=== PATIENT | female | born 1955 | race Caucasian/White ===

== ENCOUNTER 2022-03-14 09:27 | Emergency (ER) | payer MEDICAID ==
[~2022-03-14] VITALS: Ht 154.9 cm; Wt 79.4 kg
--- NOTE | 2022-03-14 09:40 | NUR ---
BIB RA 860 FROM HOME, HEARING VOICES TELLING HER TO KILL HERSELF X 1 MONTH. PLACED ON BED, AAOX4, NOT HYPERVENTILATING, +SI, FEELS HER JAW DROPPING VERBALIZE.
--- NOTE | 2022-03-14 09:45 | NUR ---
AT BED SIDE
--- NOTE | 2022-03-14 09:50 | NUR ---
BILLET BED OPERATOR AT BED SIDE FOR BLOOD WORKS
[2022-03-14 10:08] LABS: BASOPHILS # (AUTO) 0.1 K/uL (0.0-0.2); BASOPHILS % (AUTO) 1.8 % (0.0-2.0); EOSINOPHILS % (AUTO) 1.9 % (0.0-6.0); HEMATOCRIT 37 % (33-45); HEMOGLOBIN 12.1 g/dL (11.5-14.8); LYMPHOCYTES # (AUTO) 1.4 K/uL (0.8-4.8); LYMPHOCYTES % (AUTO) 23.7 % (20.0-44.0); MEAN CORPUSCULAR HGB CONC 33 g/dl (31.0-36.0); MEAN CORPUSCULAR VOLUME 87 fL (82-100); MONOCYTES # (AUTO) 0.3 K/uL (0.1-1.30); NEUTROPHILS # (AUTO) 3.9 K/uL (1.8-8.9); NEUTROPHILS % (AUTO) 67.6 % (43.0-81.0); PLATELET COUNT (AUTO) 317 K/uL (150-450); WHITE BLOOD COUNT (AUTO) 5.8 K/uL (4.3-11.0)
[2022-03-14 10:11] LABS: BILIRUBIN,URINE NEGATIVE (NEGATIVE); COLOR,URINE YELLOW (YELLOW); LEUKOCYTE ESTERASE ,URINE LARGE (NEGATIVE); NITRITE, URINE NEGATIVE (NEGATIVE); PROTEIN,URINE NEGATIVE (NEGATIVE); UGLUCOSE NEGATIVE (NEGATIVE); UROBILINOGEN,URINE 0.2 EU/dL (0.2)
[2022-03-14 10:27] LABS: BACTERIA,URINE Many /HPF (None Seen)
[2022-03-14 10:42] LABS: CALCIUM, SERUM 9.5 mg/dL (8.5-10.1); CARBON DIOXIDE 24 mmol/L (21-32); CHLORIDE 106 mmol/L (98-107); CREATININE 0.9 mg/dL (0.6-1.3); GLUCOSE 109 mg/dL (74-106); POTASSIUM 3.8 mmol/L (3.5-5.1); SODIUM SERUM 139 mmol/L (136-145); UREA NITROGEN, BLOOD 8 mg/dL (7-18)
[2022-03-14 10:48] LABS: ALANINE AMINOTRANSFERASE 33 U/L (12-78); ALBUMIN 3.7 g/dL (3.4-5.0); ALCOHOL, BLOOD < 3 mg/dL (0-0); ALKALINE PHOSPHATASE 81 U/L (46-116); ASPARTATE AMINOTRANSFERASE 20 U/L (15-37); BILIRUBIN,DIRECT 0.1 mg/dL (0.0-0.2); BILIRUBIN,TOTAL 0.4 mg/dL (0.2-1.0); TOTAL PROTEIN, SERUM 7.3 g/dL (6.4-8.2)
[2022-03-14 10:52] LABS: ACETAMINOPHEN 0 ug/ml (10-30)
--- NOTE | 2022-03-14 11:00 | NUR ---
SS Note: Pt. Is a 66-year-old female who demonstrates adequate insight to the reason for hospitalization. Per pt., she presents to the ER for suicidal ideation. Pt. stated that she has been experiencing auditory hallucinations and suicidal ideation. Pe pt., the voices are telling her to kill herself. Pt. has attempted in the past by overdosing on pills. Pt. has not attempted to herself recently but has a plan of cutting herself. Pt. was oriented x3, alert, and cooperative. During interview, pt. was capable of following directions and appeared groomed. Pt.'s speech was at a normal rate and pt.'s mood was elevated. Pt. reported no hx of mental health, substance abuse, denies homicidal ideation. Pt. denies visual hallucinations, paranoia, or delusions. Pt. has never been diagnosed with schizophrenia or any psychiatric condition. SW explored pt.'s living situation. Per pt., she lives alone [[address] [facility]. [address] [place] [id number]]. Pt. stated that she never been to a [facility] and wants to go voluntary. Plan: Pt. wants voluntary psychiatric admission.
[2022-03-14] MEDS ORDERED: CEPH500T PO (11:04)
[2022-03-14] MEDS ORDERED: CEPHALEXIN MONOHYDRATE 500 MG CAPSULE PO ONE ×2 (11:30→11:40)
--- NOTE | 2022-03-14 11:47 | NUR ---
COVID TEST COLLECTED AND SENT
--- NOTE | 2022-03-14 14:16 | NUR ---
Faxed clinicals over to [facility] [fax: [phone]]. Awaiting to see if pt. meets criteria.
--- NOTE | 2022-03-14 14:39 | NUR ---
[facility] [phone]
--- NOTE | 2022-03-14 19:26 | NUR ---
PT ACCEPTED TO [facility] WILL BE INFORMED AFTER EXCHANGE OF REPORT THE NAME OF MD. PLEASE CALL [phone] FOR REPORT PER ART.
[2022-03-14 19:32] VITALS: BP 126/70
--- NOTE | 2022-03-14 21:18 | NUR ---
S/W JOSUE AT [facility] FOR REPORT
--- NOTE | 2022-03-14 21:22 | NUR ---
STEPHEN DAUGHTER [phone]
--- NOTE | 2022-03-14 21:37 | NUR ---
[facility] ETA [id number]
--- NOTE | 2022-03-15 00:45 | NUR ---
REPPORT GIVEN TO EMS AT BEDSIDE
== END 2022-03-15 00:45 ==
LOC: ER 09:30
DX: R45.851 Suicidal ideations (principal); F20.9 Schizophrenia, unspecified; R07.9 Chest pain, unspecified; Z20.822 Contact with and (suspected) exposure to COVID-19; N39.0 Urinary tract infection, site not specified; F19.10 Other psychoactive substance abuse, uncomplicated
CPT/HCPCS: 36415; 71045; 80048; 80076; 80143; 80307; 80320; 81001; 84484 ×2; 85025; 87086; 87426; 93005; 99285; C9803; G0480

== ENCOUNTER 2022-03-21 22:42 | Inpatient (IN) | payer MEDICAID ==
[~2022-03-21] VITALS: Ht 165.1 cm; Wt 84.8 kg
[~2022-03-21 22:42] MED LIST: CEPH500T PO
--- NOTE | 2022-03-22 01:15 | NUR ---
[id number] FROM HOME FOR FENTANYL USE "SLOWER TO RESPOND" PER PT FAMILY. PT A/OX2; TOLERATING R/A WELL WITH NO SOB. CONNECTED PT TO POX AND MONITOR.
--- NOTE | 2022-03-22 01:44 | NUR ---
TREASURY ANALYST AT PT'S BEDSIDE
[2022-03-22] MEDS ORDERED: ONDANSETRON HCL/PF 4 MG/2 ML VIAL ONE (01:50)
[2022-03-22] MEDS ORDERED: IV NS 0.9% 1,000 ML BAG IV ONE (02:00)
[2022-03-22] MEDS ORDERED: ONDANSETRON HCL/PF 4 MG/2 ML VIAL IVP ONE (02:00)
--- NOTE | 2022-03-22 02:34 | NUR ---
L HAND #22 G S/L; PATENT AND INTACT. BLOOD COLLECTED AND SENT TO LAB
--- NOTE | 2022-03-22 02:40 | NUR ---
POC BS 62; DR. MACDONALD AWARE. ORDERS TO GIVE PT FOOD AND JUICE. ORDERS CARRIED OUT. WILL REASSESS BS
--- NOTE | 2022-03-22 02:59 | NUR ---
URINE COLLECTED AND SENT TO LAB
--- NOTE | 2022-03-22 03:03 | NUR ---
PT TAKEN TO CT VIA SHASHA
--- NOTE | 2022-03-22 03:14 | NUR ---
Note savanna in EDM - 03/22/22 at 0315 by SALTY [id number] FROM HOME FOR FENTANYL USE "SLOWER TO RESPOND" PER PT FAMILY. PT A/OX2; TOLERATING R/A WELL WITH NO SOB. CONNECTED PT TO POX AND MONITOR.
--- NOTE | 2022-03-22 03:14 | NUR ---
PT RETURNED TO ER BED [address]
--- NOTE | 2022-03-22 03:18 | NUR ---
POC BS RECHECK 68; DR. MACDONALD DO AWARE. WILL ENCOURAGE PT TO EAT MORE FOOD AND WILL REASSESS. PT HARD STICK. NO BLOOD DRAW YET. DR. MACDONALD DO AWARE.
[2022-03-22 03:38] LABS: BILIRUBIN,URINE NEGATIVE (NEGATIVE); COLOR,URINE YELLOW (YELLOW); LEUKOCYTE ESTERASE ,URINE NEGATIVE (NEGATIVE); NITRITE, URINE NEGATIVE (NEGATIVE); PROTEIN,URINE 30 mg/dl (NEGATIVE); UGLUCOSE 100 MG/DL mg/dL (NEGATIVE); UROBILINOGEN,URINE 0.2 EU/dL (0.2)
[2022-03-22 03:40] LABS: BASOPHILS % (AUTO) 0.2 % (0.0-2.0); EOSINOPHILS % (AUTO) 0.1 % (0.0-6.0); HEMATOCRIT 47 % (33-45); HEMOGLOBIN 15.1 g/dL (11.5-14.8); LYMPHOCYTES # (AUTO) 0.6 K/uL (0.8-4.8); LYMPHOCYTES % (AUTO) 2.6 % (20.0-44.0); MEAN CORPUSCULAR HGB CONC 32 g/dl (31.0-36.0); MEAN CORPUSCULAR VOLUME 90 fL (82-100); MONOCYTES # (AUTO) 1.1 K/uL (0.1-1.30); NEUTROPHILS # (AUTO) 20.7 K/uL (1.8-8.9); NEUTROPHILS % (AUTO) 92.1 % (43.0-81.0); PLATELET COUNT (AUTO) 238 K/uL (150-450); RED BLOOD CELL COUNT(AUTO) 5.23 MIL/uL (4.0-5.2); WHITE BLOOD COUNT (AUTO) 22.4 K/uL (4.3-11.0)
[2022-03-22 03:50] LABS: CALCIUM, SERUM 8.5 mg/dL (8.5-10.1); CARBON DIOXIDE 24 mmol/L (21-32); CHLORIDE 96 mmol/L (98-107); CREATININE 3.2 mg/dL (0.6-1.3); GLUCOSE 121 mg/dL (74-106); POTASSIUM 5.4 mmol/L (3.5-5.1); SODIUM SERUM 136 mmol/L (136-145); UREA NITROGEN, BLOOD 26 mg/dL (7-18)
[2022-03-22 03:58] LABS: ALANINE AMINOTRANSFERASE 496 U/L (12-78); ALBUMIN 4.2 g/dL (3.4-5.0); ALCOHOL, BLOOD < 3 mg/dL (0-0); ALKALINE PHOSPHATASE 147 U/L (46-116); ASPARTATE AMINOTRANSFERASE 563 U/L (15-37); BILIRUBIN,DIRECT 0.2 mg/dL (0.0-0.2); BILIRUBIN,TOTAL 0.5 mg/dL (0.2-1.0); TOTAL PROTEIN, SERUM 8.1 g/dL (6.4-8.2)
[2022-03-22 04:00] LABS: ACETAMINOPHEN 0 ug/ml (10-30)
--- NOTE | 2022-03-22 04:01 | NUR ---
NICKEL PLATER AT PT'S BEDSIDE
--- NOTE | 2022-03-22 04:17 | NUR ---
COVID ANTIGEN SWAB COLLECTED AND SENT TO LAB
--- NOTE | 2022-03-22 04:34 | NUR ---
TROPONIN 9.76; REPORTED TO DR. TORRES STACY AWARE Addendum: 03/22/22 at 0454 by SALTY TROPONIN [phone]; REPORTED TO DR. TORRES STACY AWARE
[2022-03-22] MEDS ORDERED: ENOXAPARIN SODIUM 80 MG/0.8 ML DISP.SYRIN SQ ONE ×2 (04:36→05:00)
--- NOTE | 2022-03-22 05:18 | NUR ---
[facility]
--- NOTE | 2022-03-22 06:25 | NUR ---
CHRONIC DISEASE EPIDEMIOLOGIST AT PT'S BEDSIDE
[2022-03-22 06:53] LABS: BACTERIA,URINE None seen /HPF (None Seen); SQUAMOUS EPITHELIAL CELL,UR None Seen /HPF (None Seen); WBC,URINE NONE SEEN /HPF (0-3)
[2022-03-22] MEDS: IV D5/ 0.9% NACL 1,000 ML IV PRN ×2 (06:56→09:14)
--- NOTE | 2022-03-22 07:08 | NUR ---
ROOM 120- 1
--- NOTE | 2022-03-22 07:12 | NUR ---
PER LAB, LACTIC ACID 4.5
[2022-03-22] MEDS ORDERED: ARIP10TA54 PO (07:51)
[2022-03-22] MEDS ORDERED: ESCI10TA PO (07:51)
--- NOTE | 2022-03-22 07:57 | NUR ---
REPORT GIVEN TO JUAN OCHOA FOR IBRAHIMA
--- NOTE | 2022-03-22 08:15 | NUR ---
TRANSFERRED TO BED IN STABLE CONDITION
--- NOTE | 2022-03-22 08:30 | NUR ---
RN NOTE RECEIVED PATIENT FROM ER DEPT VIA SHASHA, REPORT TAKEN FROM VIRA OCHOA. PATIENT ABLE TO AMBULATE TO BED WITH ASSIST. PATIENT IS AWAKE, ALERT/ORIENTED X 2-3, ABLE TO MAKE NEEDS KNOWN. ON O2 2LPM VIA NC, TOLERATING WELL WITH SATURATION OF 99%. BREATHING EVEN AND UNLABORED. NO SOB NOTED AT THE TIME. IV ACCESS NOTED ON LEFT HAND #22 G, PATENT AND INTACT, FLUSHED WELL. PLS REFER TO FLOWSHEET FOR SKIN ASSESSMENT. VITAL SIGNS: BP-145/89, HR-74, RR-18, TEMP-97.5. ALL SAFETY MEASURES IN PLACE. HOB ELEVATED, BED LOCKED AND IN LOWEST POSITION WITH SIDE RAILS UP X2, CALL LIGHT WITHIN REACH OF PATIENT. ALL NEEDS ANTICIPATED.
--- NOTE | 2022-03-22 09:25 | NUR ---
RN NOTE SPOKE TO HARJIT FROM PHARMACY. PER HARJIT OK TO RUN D5NS WITH ZOSYN AND ALSO VANCOMYCIN. WILL ADMINISTER MEDS SCHEDULED.
[2022-03-22] MEDS: PIPERACILLIN /TAZOBACTAM 2.25 G in IV D5W 50 ML IV SCH ×2 (09:27→16:29)
[2022-03-22] MEDS: VANCOMYCIN 1 GM in IV D5W 250 ML IV SCH (10:33)
[2022-03-22 12:00] VITALS: BP 123/66
[2022-03-22] MEDS ORDERED: PIPERACILLIN /TAZOBACTAM 3.375 G in IV D5W 50 ML IV SCH (12:00)
[2022-03-22 16:00] VITALS: BP 112/54
--- NOTE | 2022-03-22 18:47 | NUR ---
RN CLOSING NOTE NO SIGNIFICANT CHANGES FOR PATIENT THROUGHOUT SHIFT. PATIENT IS IN BED AWAKE, ALERT/ORIENTED X 2-3, ABLE TO MAKE NEEDS KNOWN. ON O2 2LPM VIA NC, TOLERATING WELL. BREATHING EVEN AND UNLABORED. NO SOB NOTED AT THE TIME. IV ACCESS NOTED ON LEFT HAND #22 G, PATENT AND INTACT, INFUSING D5NS AT 125 ML/HR, TOLERATING WELL. NO SIGNS OF INFILTRATION ON SITE. ALL DUE MEDS GIVEN ORDERED. KEPT PATIENT CLEAN DRY AND COMFORTABLE. ALL NEEDS ANTICIPATED. ALL SAFETY MEASURES IN PLACE. HOB ELEVATED, BED LOCKED AND IN LOWEST POSITION WITH SIDE RAILS UP X2, CALL LIGHT WITHIN REACH OF PATIENT. WILL ENDORSE TO ONCOMING NURSE FOR CONTINUITY OF CARE.
--- NOTE | 2022-03-22 19:00 | NUR ---
RN NOTE RECEIVED PATIENT IN BED, AO X 4, IN NO ACUTE DISTRESS AT THIS TIME. breathing unlabored, SATURATION AT 96% ON 2L VIA NC, SR ON THE MONITOR, HR IS 70. NOTED IV SITE AT L HAND 22G, PATENT AND FLUSHING WELL, NO S/S OF INFECTION OR INFILTRATION WITH D5 NS INFUSING AT 125 ML/HR. PATIENT IS AMBULATORY WITH ASSISTANCE. SAFETY MEASURES IMPLEMENTED. PATIENT BED ALARM IS ON. HEAD OF BED ELEVATED. BED IS LOCKED, IN LOWEST POSITION AND SIDE RAILS UP. CALL LIGHT WITHIN REACH OF THE PATIENT. WILL CONTINUE TO MONITOR AND REASSESS FOR ANY CHANGES.
[2022-03-22 20:00] VITALS: BP 111/58
[2022-03-22] MEDS ORDERED: CALCIUM CARBONATE 500 MG TAB.CHEW PO PRN (21:30)
[2022-03-23] MEDS: PIPERACILLIN /TAZOBACTAM 2.25 G in IV D5W 50 ML IV SCH ×3 (00:42→17:36)
[2022-03-23] MEDS: IV D5/ 0.9% NACL 1,000 ML IV PRN ×2 (00:43→19:04)
[2022-03-23 01:00] VITALS: BP 111/54
[2022-03-23 04:00] VITALS: BP 122/56
--- NOTE | 2022-03-23 07:05 | NUR ---
RN NOTE NOTED IV LINE AT L HAND 22G INFILTRATED, WITH IV SITE SWOLLEN. ATTEMPTED TO FLUSH AND ASPIRATE BUT NOTED NO BLOOD RETURN. SENIOR MATERIALS ANALYST ALSO UNABLE TO DRAW BLOOD AFTER SEVERAL ATTEMPTS. TRIED REINSERTING IV LINE BUT STILL UNABLE TO, AM SHIFT SPORTING GOODS SALES ASSOCIATE SOON MADE AWARE, SHE ACKNOWLEDGED AND STATED SHE WILL REFER PT FOR MIDLINE INSERTION.
--- NOTE | 2022-03-23 07:10 | NUR ---
RN OPENING NOTES: RECEIVED PATIENT IN BED, AO X 4, IN NO ACUTE DISTRESS AT THIS TIME. breathing unlabored, SATURATION AT 96% ON 2L VIA NC, SR ON THE MONITOR, HR IS 70. NO IV SITE AT THIS TIME PER NIGHT RN IV BECAME INFILTRATED AND UNABLE TO INSERT NEW LINE, AWAITING FOR MIDLINE INSERTION. PATIENT IS AMBULATORY WITH ASSISTANCE. SAFETY MEASURES IMPLEMENTED. PATIENT BED ALARM IS ON. HEAD OF BED ELEVATED. BED IS LOCKED, IN LOWEST POSITION AND SIDE RAILS UP. CALL LIGHT WITHIN REACH OF THE PATIENT. WILL CONTINUE TO MONITOR AND REASSESS FOR ANY CHANGES.
--- NOTE | 2022-03-23 07:31 | NUR ---
WOUND CARE CONSULT: PT PRESENTS WITH LEFT HEEL DISCOLORED AREA WHICH IS PAINFUL AND LONG TOENAILS. DR THAPA TO BE CALLED THIS AM FOR DPM CONSULT REQUEST. PT IS AMBULATORY AND CONTINENT. MD IN AGREEMENT WITH PLAN OF CARE.
[2022-03-23 08:00] VITALS: BP 122/55
[2022-03-23] MEDS ORDERED: ASPIRIN 81 MG TAB.CHEW PO SCH (09:00)
[2022-03-23] MEDS: ARIPIPRAZOLE 5 MG TABLET PO SCH (09:07)
[2022-03-23] MEDS: ESCITALOPRAM OXALATE (10 MG) 10 MG TABLET PO SCH (09:08)
[2022-03-23] MEDS: ENOXAPARIN SODIUM 30 MG/0.3 ML DISP.SYRIN SQ SCH (09:09)
--- NOTE | 2022-03-23 09:59 | NUR ---
RN NOTES: IV ZOSYN NOT GIVEN, TRIED TO INSERT A NEW LINE UNABLE TO INSERT NEW ONE, AWAITING FOR MIDLINE INSERTION, CHARGE NURSE AWARE
[2022-03-23 12:00] VITALS: BP 125/68
[2022-03-23 16:00] VITALS: BP 132/64
[2022-03-23 16:14] LABS: BASOPHILS % (AUTO) 0.1 % (0.0-2.0); EOSINOPHILS % (AUTO) 0.2 % (0.0-6.0); HEMATOCRIT 37 % (33-45); HEMOGLOBIN 11.9 g/dL (11.5-14.8); LYMPHOCYTES # (AUTO) 1.8 K/uL (0.8-4.8); LYMPHOCYTES % (AUTO) 14.8 % (20.0-44.0); MEAN CORPUSCULAR HGB CONC 33 g/dl (31.0-36.0); MEAN CORPUSCULAR VOLUME 88 fL (82-100); MONOCYTES # (AUTO) 0.6 K/uL (0.1-1.30); NEUTROPHILS # (AUTO) 9.8 K/uL (1.8-8.9); NEUTROPHILS % (AUTO) 79.9 % (43.0-81.0); PLATELET COUNT (AUTO) 175 K/uL (150-450); RED BLOOD CELL COUNT(AUTO) 4.18 MIL/uL (4.0-5.2); WHITE BLOOD COUNT (AUTO) 12.3 K/uL (4.3-11.0)
[2022-03-23 17:05] LABS: ALBUMIN 2.7 g/dL (3.4-5.0); BILIRUBIN,DIRECT 0.1 mg/dL (0.0-0.2); BILIRUBIN,TOTAL 0.3 mg/dL (0.2-1.0); CALCIUM, SERUM 8.3 mg/dL (8.5-10.1); CREATININE 1.6 mg/dL (0.6-1.3); MAGNESIUM 2.4 mg/dL (1.8-2.4); PHOSPHORUS 2.7 mg/dL (2.5-4.9); POTASSIUM 3.9 mmol/L (3.5-5.1)
[2022-03-23 17:54] LABS: THYROID STIMULATING HORMONE 1.658 uIU/mL (0.358-3.74)
--- NOTE | 2022-03-23 19:26 | NUR ---
RN CLOSING NOTES: NO SIGNIFICANT CHANGES FOR PATIENT THROUGHOUT SHIFT. PATIENT IS IN BED AWAKE, ALERT/ORIENTED X 3-4, ABLE TO MAKE NEEDS KNOWN. ON ROOM AIR. BREATHING EVEN AND UNLABORED. NO SOB NOTED AT THE TIME.RIGHT UPPER ARM MIDLINE GAUGE 18, PATENT AND INTACT, INFUSING D5NS AT 125 ML/HR, TOLERATING WELL. NO SIGNS OF INFILTRATION ON SITE. ALL DUE MEDS GIVEN ORDERED. KEPT PATIENT CLEAN DRY AND COMFORTABLE. ALL NEEDS ANTICIPATED. ALL SAFETY MEASURES IN PLACE. HOB ELEVATED, BED LOCKED AND IN LOWEST POSITION WITH SIDE RAILS UP X2, CALL LIGHT WITHIN REACH OF PATIENT. WILL ENDORSE TO ONCOMING NURSE FOR CONTINUITY OF CARE.
--- NOTE | 2022-03-23 19:34 | NUR ---
RN OPENING NOTE PATIENT IN BED, AWAKE. A/O X 4 AT THIS TIME. PATIENT IS ABLE TO MAKE NEEDS KNOWN. PATIENT DOES NOT REPORT ANY DISCOMFORT OR PAIN. BREATHING EVEN AND UNLABORED, NOT IN ANY APPARENT DISTRESS. PATIENT IS ON TELE MONITORING 78 BPM SR. PATIENT HAS A ARTURO MIDLINE PATENT AND INTACT WITH D5NS AT 125 ML/HR. SAFETY MEASURES IN PLACE: BED LOCKED AND IN LOWEST POSITION, CALL LIGHT WITHIN REACH, SIDE RAILS UP. WILL MONITOR PATIENT CLOSELY.
[2022-03-23 20:00] VITALS: BP 125/62
[2022-03-24] VITALS: BP 112/76
[2022-03-24] MEDS: PIPERACILLIN /TAZOBACTAM 2.25 G in IV D5W 50 ML IV SCH ×3 (01:00→16:26)
[2022-03-24 04:00] VITALS: BP 108/70
[2022-03-24] MEDS: IV D5/ 0.9% NACL 1,000 ML IV PRN (06:12)
--- NOTE | 2022-03-24 07:17 | NUR ---
RN CLOSING NOTE PATIENT IN BED, AWAKE. A/O X 4 AT THIS TIME. PATIENT IS ABLE TO MAKE NEEDS KNOWN. PATIENT DOES NOT REPORT ANY DISCOMFORT OR PAIN. NO N/V DURING THE SHIFT. BREATHING EVEN AND UNLABORED, NOT IN ANY APPARENT DISTRESS, ON RA. PATIENT IS ON TELE MONITORING 72 BPM SR. PATIENT HAS A ARTURO MIDLINE PATENT AND INTACT WITH D5NS AT 125 ML/HR. SAFETY MEASURES IN PLACE: BED LOCKED AND IN LOWEST POSITION, CALL LIGHT WITHIN REACH, SIDE RAILS UP. ALL NEEDS MET AND ATTENDED. ALL ORDERS CARRIED OUT. WILL ENDORSE TO DAY SHIFT NURSE FOR IBRAHIMA.
--- NOTE | 2022-03-24 07:33 | NUR ---
COAL MINER OPENING NOTE RECEIVED PATIENT IN BED, AWAKE. A/O X 4 AT THIS TIME. PATIENT IS ABLE TO MAKE NEEDS KNOWN.NO PAIN NO DISCOMFORT NOTED. BREATHING EVEN AND UNLABORED, NOT IN ANY APPARENT DISTRESS. PATIENT IS ON TELE MONITORING SR. PATIENT HAS A ARTURO MIDLINE PATENT AND INTACT WITH D5NS AT 125 ML/HR. SAFETY MEASURES IN PLACE: BED LOCKED AND IN LOWEST POSITION, CALL LIGHT AND TABLE WITHIN REACH, SIDE RAILS UP. WILL CONTINUE TO MONITOR PATIENT .
[2022-03-24 07:34] LABS: BASOPHILS % (AUTO) 0.1 % (0.0-2.0); EOSINOPHILS % (AUTO) 0.5 % (0.0-6.0); HEMATOCRIT 34 % (33-45); HEMOGLOBIN 11.2 g/dL (11.5-14.8); LYMPHOCYTES % (AUTO) 19.7 % (20.0-44.0); MEAN CORPUSCULAR HGB CONC 33 g/dl (31.0-36.0); MEAN CORPUSCULAR VOLUME 88 fL (82-100); MONOCYTES # (AUTO) 0.6 K/uL (0.1-1.30); MONOCYTES % (AUTO) 5.7 % (2.0-12.0); NEUTROPHILS # (AUTO) 7.6 K/uL (1.8-8.9); PLATELET COUNT (AUTO) 165 K/uL (150-450); RED BLOOD CELL COUNT(AUTO) 3.83 MIL/uL (4.0-5.2); WHITE BLOOD COUNT (AUTO) 10.3 K/uL (4.3-11.0)
[2022-03-24 08:00] VITALS: BP 152/60
[2022-03-24 08:16] LABS: CALCIUM, SERUM 8.3 mg/dL (8.5-10.1); CREATININE 1.5 mg/dL (0.6-1.3); MAGNESIUM 2.3 mg/dL (1.8-2.4); POTASSIUM 3.4 mmol/L (3.5-5.1)
[2022-03-24] MEDS ORDERED: K PHOS NEUTRAL 250 MG TABLET PO ONE (09:00)
[2022-03-24] MEDS: ARIPIPRAZOLE 5 MG TABLET PO SCH (09:12)
[2022-03-24] MEDS: ESCITALOPRAM OXALATE (10 MG) 10 MG TABLET PO SCH (09:12)
[2022-03-24] MEDS: ASPIRIN 81 MG TAB.CHEW PO SCH (09:12)
[2022-03-24] MEDS: ENOXAPARIN SODIUM 30 MG/0.3 ML DISP.SYRIN SQ SCH (09:13)
[2022-03-24] MEDS: VANCOMYCIN 1 GM in IV D5W 250 ML IV SCH (10:19)
[2022-03-24] MEDS ORDERED: POTASSIUM CHLORIDE 20 MEQ TAB.PRT.SR PO SCH (11:00)
[2022-03-24 12:00] VITALS: BP 140/65
[2022-03-24] MEDS: VITAMINS A AND D 56.7 GM TUBE TP SCH (13:18)
[2022-03-24 16:00] VITALS: BP 145/71
--- NOTE | 2022-03-24 18:50 | NUR ---
COMPUTER NETWORKING INSTRUCTOR ADJUNCT CLOSING NOTE PATIENT IN BED, AWAKE. A/O X 4 . PATIENT IS ABLE TO MAKE NEEDS KNOWN.NO PAIN NO DISCOMFORT NOTED. BREATHING EVEN AND UNLABORED, NOT IN ANY APPARENT DISTRESS. PATIENT IS ON TELE MONITORING SR 69. PATIENT HAS A ARTURO MIDLINE PATENT AND INTACT WITH D5NS AT 125 ML/HR. ALL DUE MEDS GIVEN ORDERED.SAFETY MEASURES IN PLACE: BED LOCKED AND IN LOWEST POSITION, CALL LIGHT AND TABLE WITHIN REACH, SIDE RAILS UP. WILL ENDORSE FOR IBRAHIMA.
[2022-03-24 20:00] VITALS: BP 135/65
[2022-03-25] VITALS: BP 130/71
[2022-03-25] MEDS: PIPERACILLIN /TAZOBACTAM 2.25 G in IV D5W 50 ML IV SCH ×3 (00:59→16:49)
[2022-03-25] MEDS: IV D5/ 0.9% NACL 1,000 ML IV PRN (01:03)
[2022-03-25 04:00] VITALS: BP 132/81
[2022-03-25 07:03] LABS: CALCIUM, SERUM 8.1 mg/dL (8.5-10.1); CREATININE 1.2 mg/dL (0.6-1.3); MAGNESIUM 2.1 mg/dL (1.8-2.4); PHOSPHORUS 2.5 mg/dL (2.5-4.9); POTASSIUM 3.3 mmol/L (3.5-5.1)
[2022-03-25 07:11] LABS: BASOPHILS % (AUTO) 0.4 % (0.0-2.0); HEMATOCRIT 33 % (33-45); HEMOGLOBIN 10.7 g/dL (11.5-14.8); LYMPHOCYTES # (AUTO) 2.1 K/uL (0.8-4.8); LYMPHOCYTES % (AUTO) 26.4 % (20.0-44.0); MEAN CORPUSCULAR HGB CONC 33 g/dl (31.0-36.0); MEAN CORPUSCULAR VOLUME 88 fL (82-100); MONOCYTES # (AUTO) 0.6 K/uL (0.1-1.30); MONOCYTES % (AUTO) 7.4 % (2.0-12.0); NEUTROPHILS % (AUTO) 63.8 % (43.0-81.0); PLATELET COUNT (AUTO) 179 K/uL (150-450); RED BLOOD CELL COUNT(AUTO) 3.71 MIL/uL (4.0-5.2); WHITE BLOOD COUNT (AUTO) 7.8 K/uL (4.3-11.0)
--- NOTE | 2022-03-25 07:51 | NUR ---
RN OPENING NOTE PATIENT RECEIVED IN BED, AO X 4. ABLE TO RESPONDS ALL STIMULI. IN NO ACUTE DISTRESS NOTED. RESPIRATORY EVEN AND UNLABORED ON ROOM AIR. SKIN IS WARM TO TOUCH, KEEP CLEAN/DRY. KEPT ELEVATED HOB FOR ENSURE AIRWAY AND ASPIRATION PRECAUTION, ALSO LOWEST POSITION OF THE BED, S/R UP X 3, BED ALARM IS ON AT ALL THE TIMES. ALL SAFETY PRECAUTION APPLIED. CALL LIGHT WITHIN REACH, WILL CONTINUE TO MONITOR.
[2022-03-25 08:00] VITALS: BP 149/88
[2022-03-25] MEDS: ESCITALOPRAM OXALATE (10 MG) 10 MG TABLET PO SCH (08:09)
[2022-03-25] MEDS: VITAMINS A AND D 56.7 GM TUBE TP SCH (08:09)
[2022-03-25] MEDS: ARIPIPRAZOLE 5 MG TABLET PO SCH (08:09)
[2022-03-25] MEDS: ASPIRIN 81 MG TAB.CHEW PO SCH (08:10)
[2022-03-25] MEDS: ENOXAPARIN SODIUM 30 MG/0.3 ML DISP.SYRIN SQ SCH (08:15)
[2022-03-25] MEDS ORDERED: POTASSIUM CHLORIDE 20 MEQ TAB.PRT.SR PO ONE (09:00)
[2022-03-25] MEDS ORDERED: HEPARIN SODIUM, PORCINE 5000 UNITS/1 ML VIAL ONE ×2 (09:49→22:22)
[2022-03-25] MEDS: VANCOMYCIN 1 GM in IV D5W 250 ML IV SCH (10:14)
[2022-03-25 12:00] VITALS: BP 127/70
[2022-03-25 16:00] VITALS: BP 150/77
--- NOTE | 2022-03-25 18:56 | NUR ---
RN CLOSING NOTE PATIENT IN BED, IN NO ACUTE DISTRESS OBSERVED. SKIN IS WARM TO TOUCH KEEP CLEAN/DRY. RESPIRATORY EVEN AND UNLABORED ON ROOM AIR. NO ADVERSE REACTION OBSERVED FROM ABX. PATIENT SIGNED CONSENT FOR CTA SCHEDULED TOMORROW. KEPT ELEVATED HOB FOR ENSURE AIRWAY AND ASPIRATION PRECAUTION, AND LOWEST POSITION OF THE BED FOR SAFETY. CALL LIGHT WITHIN REACH, WILL ENDORSE TO MIXING MACHINE OPERATOR.
[2022-03-25 20:00] VITALS: BP 160/65
--- NOTE | 2022-03-25 20:58 | NUR ---
IMFORMED YUNIOR LANDERS UNDERWEAR TRIMMER THAT PATIENT HR NOTED IN LOW 40S EVEN 40 TA THIS TIME, THAT SBP IS 169, AND PATIENT WILL HAVE CTA CORONARY IN AM, ALSO THAT PATIENT TROPONIN IN ADMISSION AND THE LAST 03/23 ARE HIGH VALUES SENT TO HER, ALSO REPORTED THAT WHEN ASSESS PATIENT SHE C/O UNDER BREAST/SUBSTERNAL PAIN, PER HER TO SEND STRIPS TO SEND IT TO HAND GLUER AND SLICER, STRIPS SENT AWAITING FOR CALL BACK.
--- NOTE | 2022-03-25 21:10 | NUR ---
RECEIVED A CALL FROM YUNIOR AND SHE STATED SHE WILL PUT ORDERS FOR EKG, NITRO SL, NITRO PATCH AND MORPHINE, AND THAT WE WELL START THE PATIENT IN HEPARIN DRIP, AWAITING FOR ORDERS.
--- NOTE | 2022-03-25 21:11 | NUR ---
RECEIVED AN ORDER FROM YUNIOR PER HER DR SANCHEZ WANT US TO GIVE HEPARIN 5000U IV BOLUS, ORDER NOTED AND CARRIED OUT.
[2022-03-25] MEDS: NITROGLYCERIN 0.4 MG/TAB BOTTLE SL PRN ×3 (21:16→21:28)
--- NOTE | 2022-03-25 21:16 | NUR ---
PATIENT C/O SUBSTERNAL PAIN 06/20, SHE POINTS UNDER THE BREAST NO DIZZINESS, BUT SHE STATED FEELING ANXIOUS, NITRO 0.4 SL ADMINISTERED AT THIS TIME BP 165/65, HR FLUCTUATING 50S-40S.
[2022-03-25] MEDS: MORPHINE SULFATE INJ 2 MG/ML DISP.SYRIN IV PRN ×2 (21:18→21:45)
--- NOTE | 2022-03-25 21:23 | NUR ---
PATIENT STATED PAIN IS NOT RELIEVED WITH 1ST DOSE OF NITRO, SECOND DOSE OF NITRO SL ADMINISTERED AT THIS TIME, BP 142/71 HR FLUCTUATING 50S-40S.
--- NOTE | 2022-03-25 21:28 | NUR ---
PATIENT STATED THAT PAIN RELIVED AT LITTLE RATING PAIN 6/10, THIRD DOSE OF NITRO SL GIVEN AT THIS TIME, BP 141/56.
[2022-03-25] MEDS ORDERED: NITROGLYCERIN PACKET 1 GM PACKET TD PRN (21:30)
[2022-03-25] MEDS ORDERED: HEPARIN INFUSION/D5W 500 ML IV PRN (21:30)
[2022-03-25] MEDS ORDERED: MAG HYDROX/AL HYDROX/SIMETH 30 ML UDC PO PRN (21:30)
[2022-03-25] MEDS ORDERED: ONDANSETRON HCL/PF 4 MG/2 ML VIAL IVP PRN (21:30)
--- NOTE | 2022-03-25 21:45 | NUR ---
PATIENT CONTINUE C/O SUBSTERNAL PAIN 05/20, MORPHINE ADMINISTERED AT THIS TIME, WILL CONTINUE TO MONITOR CLOSELY, BP 134/60.
--- NOTE | 2022-03-25 21:55 | NUR ---
PTT/PT, INR DONE, WILL WAIT FOR RESULTS TO START HEPARIN DRIP.
[2022-03-25] MEDS ORDERED: HEPARIN SODIUM,PORCINE/PF 50 UNIT/5 ML DISP.SYRIN IV ONE (22:00)
[2022-03-25] MEDS ORDERED: HEPARIN INFUSION/D5W 500 ML IV ONE (22:30)
--- NOTE | 2022-03-25 22:55 | NUR ---
PT/PTT/INR RESULTS DONE, HEPARIN [address] SANCHEZ ORDERED, AND IV HEPARIN DRIP INITIATED AT THIS TIME AT 1245 UNITS/H, WILL CONTINUE TO MONITOR CLOSELY, PER DR SANCHEZ DON'T DC ANY ORDER, MAINTAIN THE PATIENT NPO FOR CTA CORONARY TOMORROW.
--- NOTE | 2022-03-25 23:00 | NUR ---
REPORTED TO YUNIOR THAT PATIENT WITH SUSTAINED HR IN LOW 40S, AND PER DR SANCHEZ 30-30S IS OK LONG BP IS OK, ALSO PER DR SANCHEZ NO NEED TO CHECK TROPONIN AT THIS TIME TILL 0600, AND JUST OFFER MORPHINE PRN AND CONTINUE TO MONITOR CLOSELY.
--- NOTE | 2022-03-25 23:06 | NUR ---
NITRO OINTMENT ADMINISTERED IN PATCH FOR SUBSTERNAL PAIN STILL 02/18, BP 140/58, WILL CONTINUE TO MONITOR CLOSELY.
[2022-03-26] VITALS (7 sets, daily range): BP systolic 119–149; BP diastolic 51–71
--- NOTE | 2022-03-26 00:50 | NUR ---
PATIENT SLEEPING, NO SOB/ACUTE DISTRESS NOTED, BREATHING EVEN AND UNLABORED, NO FACIAL GRIMACING NOTED, WILL CONTINUE TO MONITOR CLOSELY.
[2022-03-26] MEDS: PIPERACILLIN /TAZOBACTAM 2.25 G in IV D5W 50 ML IV SCH ×3 (01:59→16:15)
[2022-03-26] MEDS: MORPHINE SULFATE INJ 2 MG/ML DISP.SYRIN IV PRN (05:50)
[2022-03-26 06:22] LABS: BASOPHILS % (AUTO) 0.5 % (0.0-2.0); EOSINOPHILS % (AUTO) 3.3 % (0.0-6.0); HEMATOCRIT 32 % (33-45); HEMOGLOBIN 10.8 g/dL (11.5-14.8); LYMPHOCYTES # (AUTO) 2.4 K/uL (0.8-4.8); LYMPHOCYTES % (AUTO) 27.8 % (20.0-44.0); MEAN CORPUSCULAR HGB CONC 34 g/dl (31.0-36.0); MEAN CORPUSCULAR VOLUME 87 fL (82-100); MONOCYTES # (AUTO) 0.7 K/uL (0.1-1.30); MONOCYTES % (AUTO) 7.8 % (2.0-12.0); NEUTROPHILS # (AUTO) 5.2 K/uL (1.8-8.9); NEUTROPHILS % (AUTO) 60.6 % (43.0-81.0); PLATELET COUNT (AUTO) 194 K/uL (150-450); RED BLOOD CELL COUNT(AUTO) 3.67 MIL/uL (4.0-5.2); WHITE BLOOD COUNT (AUTO) 8.6 K/uL (4.3-11.0)
--- NOTE | 2022-03-26 06:46 | NUR ---
CLOSING NOTES, PATIENT ASLEEP AT THIS TIME, AROUSES TO VERBAL STIMULI, NO SOB/ACUTE DISTRESS NOTED AT THIS TIME, NPO SINCE MIDNIGHT FOR CTA CORONARY TODAY, PATIENT STARTED IN HEPARIN DRIP PER DR SANCHEZ IN COMMUNICATION WITH YUNIOR MCCARTHY, HEPARIN INFUSING AT 1245 UNITS/HR, PTT/PTT DRAW EARLIER AWAITING FOR RESULTS, ALSO ON D5 NS AT 100ML/HR, PATIENT WITH EPISODES OF SUBSTERNAL /UNDER BREAST PAIN LAST NIGHT NOT RELIEVED WITH NITRO SL X3, MORPHINE ADMINISTERED AFTER THAT, WITH NITRO OINTMENT PATCH AT THE END FOR RECURRENT PAIN, DR SANCHEZ AWARE, AND THAT'S WHY HE STARTED THE HEPARIN DRIP, AFTER 0100 PATIENT FALL ASLEEP AND DID NOT COMPLAINED OF ANY PAIN OR DISCOMFORT, SHE DENIES CHEST PAIN AFTER THAT, THIS AM C/O SEVERE HEADACHE MORPHINE ADMINISTERED, WILL ENDORSE CONTINUITY OF CARE TO ONCOMING NURSE.
--- NOTE | 2022-03-26 07:30 | NUR ---
BUTCHER AM NOTE RECEIVED IN BED, AO X 4. ABLE TO MAKE NEEDS KNOWN, ON 4L O2 NASAL CANULA, O2 SAT 96%. NO ACUTE DISTRESS, RESPIRATION UNLABORED, SB HR 48, DENIES CHEST PAIN/DISCOMFORT. CARISA MIDLINE WITH HEPARIN DRIP ONGOING 1245 U/HR. SITE CLEAR. NO SIGNS OF BLEEDING. CARDIAC DIET BUT NPO FOR NOW. SKIN IS WARM TO TOUCH, KEEP CLEAN/DRY. KEPT ELEVATED HOB FOR ENSURE AIRWAY AND ASPIRATION PRECAUTION, BED LOW LOCKED. BED ALARM ON AT ALL THE TIMES. ALL SAFETY PRECAUTION APPLIED. CALL LIGHT WITHIN REACH, WILL CONTINUE TO MONITOR. PATIENT FOR SCHEDULED CTCA. TODAY.
[2022-03-26 08:21] LABS: CALCIUM, SERUM 8.4 mg/dL (8.5-10.1); CREATININE 1.2 mg/dL (0.6-1.3); POTASSIUM 3.4 mmol/L (3.5-5.1)
[2022-03-26] MEDS: ARIPIPRAZOLE 5 MG TABLET PO SCH (09:07)
[2022-03-26] MEDS: ESCITALOPRAM OXALATE (10 MG) 10 MG TABLET PO SCH (09:07)
[2022-03-26] MEDS: ASPIRIN 81 MG TAB.CHEW PO SCH (09:07)
[2022-03-26] MEDS: VITAMINS A AND D 56.7 GM TUBE TP SCH (09:08)
[2022-03-26] MEDS: IV D5/ 0.9% NACL 1,000 ML IV PRN (09:11)
--- NOTE | 2022-03-26 09:15 | NUR ---
RN NOTES DR. SANCHEZ AT BEDSIDE. FOR CARDIAC ANGIOGRAM POSSIBLE [facility]. CONSENT SIGNED. DC HEPARIN DRIP
--- NOTE | 2022-03-26 09:30 | NUR ---
RN NOTES DUE MEDS GIVEN
--- NOTE | 2022-03-26 09:30 | NUR ---
RN NOTES DR. SANCHEZ AT BEDSIDE. DUE MEDS GIVEN DC HEPARIN DRIP. PATIENT FOR POSSIBLE LEFT HEART CATH. CONSENT TITI. PATIENT REMAINS ON NPO
[2022-03-26] MEDS: VANCOMYCIN 1 GM in IV D5W 250 ML IV SCH (10:11)
[2022-03-26] MEDS: POTASSIUM CL. PREMIX PERIPHER. 50 ML IV SCH ×2 (12:15→13:12)
[2022-03-26] MEDS ORDERED: ACETAMINOPHEN 325 MG TABLET PO PRN (13:00)
--- NOTE | 2022-03-26 13:23 | NUR ---
RN NOTES WAS GOING TO START KCL BAG #2, BUT CARDIAC CATH STAFF ON SITE TO PADDLE DYEING MACHINE OPERATOR PATIENT. DR. ELY INFORMED. I BAG GIVEN AND ORDERED TO DC THE REST OF KCL IV AND GIVE KCL 20 MEQ ORAL ONCE BACK FROM PROCEDURE
[2022-03-26] MEDS ORDERED: FENTANYL PF 100MCG/2ML AMPUL ONE (14:22)
[2022-03-26] MEDS ORDERED: MIDAZOLAM HCL 2 MG/2ML VIAL ONE (14:22)
--- NOTE | 2022-03-26 14:45 | NUR ---
RN NOTES PATIENT BACK FROM CARDIAC CUSTOM DECORATING CONSULTANT. S/P LEFT/RIGHT CORONARY CINEANGIOGRAPHY C/O DR. SANCHEZ. RESPONDS TO NAME AND TOUCH. TR BAND IN PLACE. INTACT. DENIES PAIN. NO DISTRESS, RESPIRATION UNLABORED. WILL START DEFLATING AT 1600 3ML EVERY 15 MINUTES. BLEEDING PRECAUTIONS. WILL CONT TO MONITOR BP 129/55 TEMP 97.5 O2 SAT 100% RR 16 HR 43
[2022-03-26] MEDS ORDERED: POTASSIUM CHLORIDE 20 MEQ TAB.PRT.SR PO ONE (15:30)
--- NOTE | 2022-03-26 17:41 | NUR ---
RN NOTES TR BAND DEFLATED Q 15 MINUTES. ABSENT BLEEDING. TR BAND OFF. APPLIED DRESSING.
--- NOTE | 2022-03-26 18:47 | NUR ---
INFORMATION CLERK AUTOMOBILE CLUB CLOSING NOTE PATIENT IN BED, AO X 4. ABLE TO MAKE NEEDS KNOWN, RESTING COMFORTABLY. ON 4L O2 NASAL CANULA, O2 SAT 100%. NO ACUTE DISTRESS, RESPIRATION UNLABORED, SB HR 44, DENIES CHEST PAIN/DISCOMFORT. CARISA MIDLINE WITH NS AT 100 ML/HR INFUSING WELL, SITE CLEAR. NO SIGNS OF BLEEDING. CARDIAC DIET SKIN IS WARM TO TOUCH, KEEP CLEAN/DRY. KEPT ELEVATED HOB FOR ENSURE AIRWAY AND ASPIRATION PRECAUTION, BED LOW LOCKED. BED ALARM ON AT ALL THE TIMES. ALL SAFETY PRECAUTION APPLIED. CALL LIGHT WITHIN REACH, ALL NEEDS MET. NO OTHER SIGNIFICANT CHANGE IN CONDITION. WILL ENDORSE TO NEXT SHIFT FOR IBRAHIMA. S/P LEFT AND RIGHT CORONARY CINEANGIOGRAPHY BY DR. SANCHEZ. - MILD MID LAD DSE.
--- NOTE | 2022-03-26 19:30 | NUR ---
RECEIVED PATIENT IN BED, AO X 4, ON 4L O2 NASAL CANULA, WITH OPTIMAL O2 STA LEVEL, NO SOB/ACUTE DISTRESS NOTED, DENIES CHEST PAIN OR DISCOMFORT, S/P LHC, S/P TR BAND REMOVAL AND DRESSING IN PLACE CLEAN AND INTACT, NO SINGS OF BLEEDING, BED LOCKED AND LOWEST POSITION, PATIENT REFUSED BED ALARM, EDUCATED REGARDING BED ALARM BENEFITS AND SHE STILL REFUSED, ALL SAFETY PRECAUTION MAINTAINED, CALL LIGHT WITHIN REACH, WILL CONTINUE TO MONITOR CLOSELY.
[2022-03-27] VITALS: BP 151/51
[2022-03-27] MEDS: PIPERACILLIN /TAZOBACTAM 2.25 G in IV D5W 50 ML IV SCH ×2 (00:27→09:16)
[2022-03-27 04:00] VITALS: BP 158/75
--- NOTE | 2022-03-27 06:52 | NUR ---
CLOSING NOTES, Patient awake at this time, a/o x4, s/p LHC yesterday, cont on 3lpm via nc with optimal or sat, stable vital sings, CARISA midline IV fluids infusing as ordered, otherwise no significant change in condition doing the night, bed locked and in lowest position, ambulatory with BRP, refused bed alarm, will endorse continuity of care to oncoming nurse.
--- NOTE | 2022-03-27 07:30 | NUR ---
PRODUCT CONTROL AND LOGISTICS ANALYST AM NOTE PATIENT IN BED, AO X 4. ABLE TO MAKE NEEDS KNOWN, ON 2L O2 NASAL CANULA, O2 SAT 98%. NO ACUTE DISTRESS, RESPIRATION UNLABORED, SR HR 60, DENIES CHEST PAIN/DISCOMFORT. CARISA MIDLINE WITH NS AT 100 ML/HR INFUSING WELL, SITE CLEAR. NO SIGNS OF BLEEDING. CARDIAC DIET SKIN IS WARM TO TOUCH, KEEP CLEAN/DRY. KEPT ELEVATED HOB FOR ENSURE AIRWAY AND ASPIRATION PRECAUTION, BED LOW LOCKED. BED ALARM ON AT ALL THE TIMES. ALL SAFETY PRECAUTION APPLIED. CALL LIGHT WITHIN REACH, ALL NEEDS MET. NO OTHER SIGNIFICANT CHANGE IN CONDITION. WILL CONTINUE TO MONITOR 03/26/2022 - S/P LEFT AND RIGHT CORONARY CINEANGIOGRAPHY BY DR. SANCHEZ. - MILD MID LAD DSE.
[2022-03-27 08:00] VITALS: BP 150/78
[2022-03-27] MEDS ORDERED: ASPIRIN 81 MG TAB.CHEW PO SCH (09:08)
[2022-03-27] MEDS: ESCITALOPRAM OXALATE (10 MG) 10 MG TABLET PO SCH (09:17)
[2022-03-27] MEDS: VITAMINS A AND D 56.7 GM TUBE TP SCH (09:18)
[2022-03-27] MEDS: ARIPIPRAZOLE 5 MG TABLET PO SCH (09:18)
[2022-03-27] MEDS ORDERED: ASPI-1169 PO (09:20)
[2022-03-27] MEDS ORDERED: POTASSIUM CHLORIDE 20 MEQ TAB.PRT.SR PO ONE (09:30)
--- NOTE | 2022-03-27 09:30 | NUR ---
RN NOTES ALL DUE MEDS GIVEN PATIENT REFUSING IV FLUIDS
--- NOTE | 2022-03-27 10:45 | NUR ---
RN NOTES ALEJANDRA AT SOCIAL SERVICE NOTIFIED THAT PATIENT WANTS TO TALK TO HER
[2022-03-27] MEDS ORDERED: ATOR40TA PO (11:46)
[2022-03-27 12:00] VITALS: BP 155/70
--- NOTE | 2022-03-27 12:08 | NUR ---
SS consult: SS Consult requested for safe discharge planning. The pt. is a 67 -year-old female patient who was admitted to [facility] for complaints of vomiting and generalized weakness. Upon SS consult, the pt. is Alert & Oriented x 4 and makes good eye contact. The pt. appears well-groomed with euthymic mood & affect. Pt.s speech thought process are WNL. The pt. remained calm & cooperative throughout interview. Pt. denies SI/HI and denies hallucinations. MARIA ELENA explored pt.s living situation. Per pt. she resides at home [[address] [place], [place] [address] [facility] [id number]; ] with her Father who is currently hospitalized. MARIA ELENA explored pt.s mental health Hx. Patient states she was recently discharged from a psych hospital due to AH and is currently on some medication and could not recall name. MARIA ELENA explored pt.s drug & ETOH use. Pt. denies any use of drugs or alcohol. Per pt. she has trouble walking and would like taxi transport to home. MARIA ELENA provided taxi voucher to nursing to arrange transport to home. MARIA ELENA also provided pt. with clothing, shoes. Plan: Pt. will be discharge to home via taxi [address] [facility] [facility] [address].
--- NOTE | 2022-03-27 12:58 | NUR ---
HOTSHOT SUPERINTENDENT NOTE PT DISCHARGED TO HOME IN STABLE CONDITION PER MD. PROVIDED DC INSTRUCTIONS, MED RECON LIST/PRESCRIPTION AND HEALTH TEACHINGS. PT TO FOLLOW UP WITH PCP IN 1 WEEK AND WILL MAKE OWN APPOINTMENT. CARISA MIDLINE REMOVED BY BIANCA CHARGE NURSE. NO BLEEDING, DRESSING IN PLACE. ALL BELONGINGS CHECKED AND RETURNED. ALL PAPERWORKS SIGNED. PT REFUSED PHOTOS OF SKIN ISSUES. PATIENT SEEN BY SUBSORTER EARLIER, ACCOMPANIED BY GUS [place] TO LOBBY VIA WHEELCHAIR, WILL GO HOME VIA TAXI.
== END 2022-03-27 13:03 | disposition home or self-care (01) | DRG 190 ==
LOC: ER 22:50 → TRANSITION 03-22 05:55 → TELE1 03-22 07:24
PROVIDERS: ADMIT Student in an Organized Health Care Education/Training Program; ATTEND Internal Medicine
PROC: 05H933Z Insertion of Infusion Device into Right Brachial Vein, Percutaneous Approach (ICD-10-PCS; 2022-03-23)
PROC: 05HF33Z Insertion of Infusion Device into Left Cephalic Vein, Percutaneous Approach (ICD-10-PCS; 2022-03-25)
PROC: 4A023N7 Measurement of Cardiac Sampling and Pressure, Left Heart, Percutaneous Approach (ICD-10-PCS; principal; 2022-03-26)
PROC: B211YZZ Fluoroscopy of Multiple Coronary Arteries using Other Contrast (ICD-10-PCS; 2022-03-26)
DX: I21.4 Non-ST elevation (NSTEMI) myocardial infarction (principal); N17.0 Acute kidney failure with tubular necrosis; E87.2 Acidosis; L89.626 Pressure-induced deep tissue damage of left heel; E83.39 Other disorders of phosphorus metabolism; R53.1 Weakness; Z20.822 Contact with and (suspected) exposure to COVID-19; I25.10 Atherosclerotic heart disease of native coronary artery without angina pectoris; M20.41 Other hammer toe(s) (acquired), right foot; M20.42 Other hammer toe(s) (acquired), left foot; E16.2 Hypoglycemia, unspecified; D72.829 Elevated white blood cell count, unspecified; E87.5 Hyperkalemia; R74.01 Elevation of levels of liver transaminase levels; Z82.49 Family history of ischemic heart disease and other diseases of the circulatory system; Z83.3 Family history of diabetes mellitus; L85.3 Xerosis cutis; L60.3 Nail dystrophy; M79.672 Pain in left foot; M79.671 Pain in right foot; E78.5 Hyperlipidemia, unspecified; Z86.59 Personal history of other mental and behavioral disorders
CPT/HCPCS: 36415; 70450-TC; 71045-TC; 80048-TC; 80061-TC; 80076-TC; 80202-TC; 81001; 82962-TC; 83605-TC; 83735-TC; 84100-TC; 84443-TC; 84484-TC; 85025-TC; 85610-TC; 85730-TC; 87040-TC; 87081-TC; 87086-TC; 93307-TC; C1887; C9803; G0378; G0480; G0500; J1642; J1644; J1650; J2250; J2270; J2405; J2543; J3010; J3370; J3480; J7030; J7042; J7060

== ENCOUNTER 2022-03-31 16:13 | Emergency (ER) | payer MEDICAID ==
[~2022-03-31] VITALS: Ht 152.4 cm; Wt 79.4 kg
[~2022-03-31 16:13] MED LIST changes: +ARIP10TA54 PO; +ASPI-1169 PO; +ATOR40TA PO; -CEPH500T PO; +ESCI10TA PO
--- NOTE | 2022-03-31 16:13 | NUR ---
PT BIB RA 860 FROM HOME C/O BLOOD NOTED IN HER STOOL X 2 WEEKS AND ABDOMINAL PAIN. PT IS AAOX4, NOT IN RESPIRATORY DISTRESS, HOOKED TO V/S MONITOR, KEPT RESTED AND COMFORTABLE. WILL CONTINUE TO MONITOR.
--- NOTE | 2022-03-31 16:30 | NUR ---
IV LINE ESTABLISHED BLOOD DRAWN AND SENT TO LAB.
--- NOTE | 2022-03-31 16:39 | NUR ---
SEEN AND EXAMINED BY .
[2022-03-31] MEDS ORDERED: ONDANSETRON HCL/PF 4 MG/2 ML VIAL ONE (16:47)
[2022-03-31] MEDS ORDERED: MORPHINE SULFATE INJ 4 MG/ML DISP.SYRIN ONE (16:47)
--- NOTE | 2022-03-31 16:50 | NUR ---
PSYCHIATRIC RN AT BEDSIDE FOR XRAY.
[2022-03-31] MEDS ORDERED: MORPHINE SULFATE INJ 2 MG/ML DISP.SYRIN IV ONE (17:00)
[2022-03-31] MEDS ORDERED: IV NS 0.9% 1,000 ML BAG IV ONE (17:00)
[2022-03-31] MEDS ORDERED: ONDANSETRON HCL/PF 4 MG/2 ML VIAL IVP ONE (17:00)
[2022-03-31 17:23] LABS: BASOPHILS # (AUTO) 0.1 K/uL (0.0-0.2); BASOPHILS % (AUTO) 0.5 % (0.0-2.0); EOSINOPHILS % (AUTO) 2.2 % (0.0-6.0); HEMATOCRIT 35 % (33-45); HEMOGLOBIN 11.7 g/dL (11.5-14.8); LYMPHOCYTES % (AUTO) 20.4 % (20.0-44.0); MEAN CORPUSCULAR HGB CONC 34 g/dl (31.0-36.0); MEAN CORPUSCULAR VOLUME 86 fL (82-100); MONOCYTES # (AUTO) 0.7 K/uL (0.1-1.30); MONOCYTES % (AUTO) 7.2 % (2.0-12.0); NEUTROPHILS # (AUTO) 6.9 K/uL (1.8-8.9); NEUTROPHILS % (AUTO) 69.7 % (43.0-81.0); PLATELET COUNT (AUTO) 315 K/uL (150-450); RED BLOOD CELL COUNT(AUTO) 4.04 MIL/uL (4.0-5.2); WHITE BLOOD COUNT (AUTO) 9.9 K/uL (4.3-11.0)
[2022-03-31 17:57] LABS: BILIRUBIN,DIRECT 0.1 mg/dL (0.0-0.2); BILIRUBIN,TOTAL 0.2 mg/dL (0.2-1.0); CALCIUM, SERUM 9.2 mg/dL (8.5-10.1); CHLORIDE 106 mmol/L (98-107); CREATININE 1.2 mg/dL (0.6-1.3); SODIUM SERUM 140 mmol/L (136-145); TOTAL PROTEIN, SERUM 7.1 g/dL (6.4-8.2)
--- NOTE | 2022-03-31 18:59 | NUR ---
IV removed. Catheter intact and site benign. Pressure and 4x4 applied to site. No bleeding noted.Patient discharged to home in stable condition. Written and verbal after care instructions given. Patient verbalizes understanding of instruction.
[2022-03-31 19:00] VITALS: BP 129/68
[2022-03-31 19:34] LABS: ALANINE AMINOTRANSFERASE 91 U/L (12-78); ALBUMIN 3.1 g/dL (3.4-5.0); ALKALINE PHOSPHATASE 114 U/L (46-116); ASPARTATE AMINOTRANSFERASE 27 U/L (15-37); CARBON DIOXIDE 23 mmol/L (21-32); GLUCOSE 99 mg/dL (74-106); UREA NITROGEN, BLOOD 12 mg/dL (7-18)
== END 2022-03-31 19:01 | disposition home or self-care (01) ==
LOC: ER 16:50
DX: K62.5 Hemorrhage of anus and rectum (principal); Z60.2 Problems related to living alone; Z79.899 Other long term (current) drug therapy
CPT/HCPCS: 71045; 74176; 80048; 80076; 84484; 85025; 85730; 86850; 93005; 96361; 96374; 96375; 99285; J2270; J2405; J7030; 36415